=== PATIENT | female | born 1955 | race African-American/Black ===

== ENCOUNTER 2016-10-22 12:19 | Day surgery (SDC) | payer OTHER ==
[2016-10-15 10:20] LABS: HEMATOCRIT 36.8 % (36.0-47.0); HEMOGLOBIN 12.6 g/dL (12.0-15.5); MEAN CORPUSCULAR HEMOGLOBIN 29.5 pg (27.0-33.4); MEAN CORPUSCULAR HGB CONC 34.2 g/dL (32.0-36.0); MEAN CORPUSCULAR VOLUME 86 fl (80-97); RED BLOOD COUNT 4.28 10^6/uL (3.72-5.28); RED CELL DISTRIBUTION WIDTH 13.7 % (11.5-14.0); WHITE BLOOD COUNT 4.2 10^3/uL (4.0-10.5)
--- NOTE | 2016-10-15 13:11 | EKG REPORT ---
SEVERITY:- NORMAL ECG - SINUS RHYTHM : Confirmed by: Hebert Concepcion MD 15-Oct-2016 13:10:36
[~2016-10-22 12:19] MED LIST: LACTATED RINGERS 1000 ML IV PRN; LIDOCAINE 0.5% INJ-PF (5 MG/ML) 50 ML SDV SUBCUT PRN
[2016-10-22] MEDS ORDERED: BUPIVACAINE HCL 0.25 % INJ/PF (2.5 MG/1 ML) 30 ML VIAL ONE (16:16)
[2016-10-22] MEDS ORDERED: FENTANYL CITRATE INJ/PF 250 MCG/5 ML AMPULE ONE (16:39)
[2016-10-22] MEDS ORDERED: MIDAZOLAM 2 MG/2 ML INJ ONE (16:40)
[2016-10-22] MEDS ORDERED: MORPHINE SULFATE 10 MG/ML INJ ONE (16:40)
[2016-10-22] MEDS ORDERED: PROPOFOL INJ 200 MG/20 ML VIAL IV ONE (16:40)
[2016-10-22] MEDS ORDERED: BUPIVACAINE HCL 0.25 % INJ/PF (2.5 MG/1 ML) 30 ML VIAL INJ ONE (17:17)
--- NOTE | 2016-10-22 17:41 | Operative Report ---
Operative Report DATE OF SURGERY: 10/22/16 PREOPERATIVE DIAGNOSIS: left axillary mass POSTOPERATIVE DIAGNOSIS: left axillary mass OPERATION: Left axillary mass excisional biopsy SURGEON: NATHAN FLORES ANESTHESIA: LMAC TISSUE REMOVED OR ALTERED: Left axillary mass COMPLICATIONS: None none ESTIMATED BLOOD LOSS: minimal INTRAOPERATIVE FINDINGS: Firm approximately 1.5 cm left axillary mass ill- defined with surrounding scar tissue. PROCEDURE: Informed consent was obtained. Patient was brought to the operating room placed operating table in supine position. Procedure was done under LMAC. Her left axilla was prepped and draped in usual sterile fashion. Local anesthetic was administered. The mass laid at the lateral portion of the patient's the axilla. A transverse incision was made dissection was carried down to the subcutaneous tissue. An ill-defined the 1.5 cm very firm mass was palpable there was surrounding scar tissue that was fairly dense. The mass was sharply excised. And submitted to pathology. Hemostasis was achieved with electrocautery. Other than the scar tissue in the surrounding region I did not feel any other palpable masses. The wound was closed with deep dermal interrupted Vicryl sutures with overlying Steri-Strips. Patient tolerated procedure well with no apparent complications and was taken to the recovery area in stable condition.
[2016-10-22] MEDS ORDERED: RINGERS SOLUTION,LACTATED 1,000 ML IV PRN (17:43)
[2016-10-22] MEDS ORDERED: OXYCODONE-ACETAMINOPHEN 5-325 MG TABLET PO PRN (17:43)
[2016-10-22] MEDS ORDERED: MORPHINE SULFATE 10 MG/ML INJ IV PRN (17:43)
[2016-10-22] MEDS ORDERED: ONDANSETRON HCL INJ/PF 4 MG/2 ML SDV IV PRN (17:43)
--- NOTE | 2016-10-22 17:43 | PDOC DISCHARGE SUMMARY ---
Discharge Summary (SDC) - Discharge Final Diagnosis: Left axillary mass. Date of Surgery: 10/22/16 Discharge Date: 10/22/16 Condition: Good Treatment or Instructions: Left axillary mass excisional biopsy. May discharge patient home when met discharge criteria. May shower in 2 days. Keep Steri-Strips on. Follow-up with me next week. Prescriptions: Oxycodone HCl/Acetaminophen [Percocet 5-325 mg Tablet] 1 tab PO ASDIR PRN #25 tablet PRN Reason: Discharge Diet: As Tolerated Discharge Activity: Activity As Tolerated - Stay active but avoid strenuous activity. Report the Following to Your Physician Immediately: Fever over 101 Degrees, Unusual Bleeding, Redness, Drainage-Foul Smelling
[2016-10-22] MEDS ORDERED: ONDANSETRON 4 MG TAB.RAPDIS ONE (19:23)
[2016-10-22 19:42] VITALS: BP 123/78
[2016-10-22] MEDS ORDERED: LIDOCAINE 2% INJ-PF (20 MG/ML) 10 ML AMPUL ONE (20:12)
[2016-10-22] MEDS ORDERED: ONDANSETRON HCL INJ/PF 4 MG/2 ML SDV ONE (20:12)
[2016-10-22] MEDS ORDERED: METOCLOPRAMIDE HCL INJ/PF 10 MG/2 ML SDV ONE (20:12)
[2016-10-22] MEDS ORDERED: GLYCOPYRROLATE INJ 0.4 MG/2 ML VIAL ONE (20:12)
== END 2016-10-22 19:35 | disposition home or self-care (01) ==
LOC: OROUT 12:19
PROVIDERS: ATTEND Surgery
PROC: 07B60ZX Excision of Left Axillary Lymphatic, Open Approach, Diagnostic (ICD-10-PCS; principal; 2016-10-22 14:30)
DX: M79.9 Soft tissue disorder, unspecified (principal); E78.00 Pure hypercholesterolemia, unspecified; E04.9 Nontoxic goiter, unspecified; I25.10 Atherosclerotic heart disease of native coronary artery without angina pectoris; M19.90 Unspecified osteoarthritis, unspecified site; Z85.3 Personal history of malignant neoplasm of breast; Z79.899 Other long term (current) drug therapy; Z90.12 Acquired absence of left breast and nipple; Z88.0 Allergy status to penicillin; Z91.040 Latex allergy status
CPT/HCPCS: 93005; 36415; 85027; 88305 ×2; 93010; 38500; J2250; S0119; J3010; J2765; J2405; J2704; J3490; 400; J2270

== ENCOUNTER → 2018-09-03 | Outpatient (CLI) | payer OTHER ==
--- NOTE | 2018-09-03 15:46 | RADIOLOGY REPORT (SQ) ---
EXAM DESCRIPTION: CT ABD/PELVIS WITH IV ORAL COMPLETED DATE/TIME: 09/03/2018 1:40 pm REASON FOR STUDY: PANCREATIC MASS (K86.9) K86.9 DISEASE OF PANCREAS, UNSPECIFIED COMPARISON: Small bowel series 44435 CT abdomen pelvis 04/14/2014 TECHNIQUE: CT scan of the abdomen and pelvis performed using helical scanning technique with dynamic intravenous contrast injection. Patient drank oral contrast. Images reviewed with lung, soft tissue , and bone windows. Reconstructed coronal and sagittal MPR images reviewed. Delayed images for evalua tion of the urinary system also acquired. All images stored on PACS. All CT scanners at this facility use dose modulation, iterative reconstruction, and/or weight based d osing when appropriate to reduce radiation dose to as low as reasonably achievable (ALARA). [facility]: Dose Right [facility]: CareDose [facility]: Dose Right [facility]: Teradose 4D [facility]: LiveOnDemand CONTRAST TYPE AND DOSE: contrast/concentration: Isovue 350.00 mg/ml; Total Contrast Delivered: 96.0 ml; Total Saline Delivered: 71.0 ml RENAL FUNCTION: Creatinine 0.9 RADIATION DOSE: CT Rad equipment meets quality standard of care and radiation dose reduction techniq ues were employed. CTDIvol: 6.5 - 7.8 mGy. DLP: 739 mGy-cm.. LIMITATIONS: None. FINDINGS: LOWER CHEST: No significant findings. No nodules or infiltrates. LIVER: Normal size. No masses. No dilated ducts. SPLEEN: Normal size. No focal lesions. PANCREAS: No masses. No significant calcifications. No adjacent inflammation or peripancreatic fluid collections. Pancreatic duct not dilated. GALLBLADDER: No identified stones by CT criteria. No inflammatory changes to suggest cholecystitis. ADRENAL GLANDS: No significant masses or asymmetry. RIGHT KIDNEY AND URETER: No solid masses. No significant calcifications. No hydronephrosis or hyd roureter. LEFT KIDNEY AND URETER: No solid masses. No significant calcifications. No hydronephrosis or hydr oureter. AORTA AND VESSELS: No aneurysm. No dissection. Renal arteries, SMA, celiac without stenosis. RETROPERITONEUM: No retroperitoneal adenopathy, hemorrhage or masses. BOWEL AND PERITONEAL CAVITY: Patient drank oral contrast. No CT evidence of bowel obstruction. No m asses or inflammatory changes. No free fluid or peritoneal masses. APPENDIX: Normal. PELVIS: No mass. No free fluid. Normal bladder. Post hysterectomy ABDOMINAL WALL: No masses. No hernias. BONES: No significant or acute findings. OTHER: No other significant finding. IMPRESSION: NO SIGNIFICANT OR ACUTE FINDING IN THE ABDOMEN OR PELVIS ON CT SCAN WITH IV CONTRAST. TECHNICAL DOCUMENTATION: JOB ID: [id number] Quality ID # [id number]: Final reports with documentation of one or more dose reduction techniques (e.g., Au tomated exposure control, adjustment of the mA and/or kV according to patient size, use of iterative reconstruction technique) 2010 [employer] All Rights Reserved Reading location - IP/workstation name: [email or web address]
== END ==
LOC: RAD 12:21
PROVIDERS: ATTEND Surgery
DX: K86.9 Disease of pancreas, unspecified (principal)
CPT/HCPCS: 74177; 82565